=== PATIENT | female | born 1955 | race Caucasian/White ===

== ENCOUNTER 2023-06-01 09:38 | Outpatient (AMB) | payer MEDICARE, OTHER, SELFPAY ==
--- NOTE | 2023-06-01 09:45 | HO.NEPHOV ---
HPI HPI Comments History of Present Illness Details I had the privilege of seeing Fernanda in consultation for proteinuria. 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 She has had nephrolithiasis in the past. She has history hypertension and has LVH by echocardiogram last year. She has been taking Remicade. She also had been on spironolactone, fenofibrate, metformin as well as prednisone among her other medications. Her serum creatinine has been around 1.2. She has been having mild proteinuria. She denies any epistaxis, hemoptysis, hematemesis, melena, new skin rash, photosensitivity or pedal edema. She does not have any bone pain and does not take excessive nonsteroidal anti-inflammatory medications. [facility] Medical History (Updated 06/15/23 @ 04:20 by Danny Shelley MD) LVH (left ventricular hypertrophy) B12 deficiency Type 2 diabetes mellitus History of bone density study Hypothyroidism Hypertension Kidney stone JEAN (obstructive sleep apnea) Pulmonary fibrosis Behcet's disease Diverticulitis Proteinuria Surgical History (Updated 06/01/23 @ 09:51 by Rox Gresham MA) History of left hip replacement History of left knee replacement History of right hip replacement S/P skin biopsy History of knee surgery H/O: section History of total knee replacement (TKR) Family History (Updated 06/01/23 @ 08:46 by Rox Gresham MA) Father Heart attack Heart disease Mother Parkinson disease Social History (Updated 06/01/23 @ 08:51 by Rox Gresham MA) Alcohol intake: current Comment: occasionally Patient Tobacco Use Status: Former Tobacco user Vital Signs 06/01/23 09:47 Height 5 ft 3 in Weight 181 lb BMI 32.1 BP 120/82 Blood Pressure Location Rt brachial Position Sitting Pulse 54 Pulse Source Pulse Oximeter Physical Exam Vital Signs: Last Vital Signs Pulse 54 06/01/23 09:47 BP 120/82 06/01/23 09:47 BMI result Body Mass Index 32.1 Const General: comfortable and no acute distress Orientation/consciousness: patient oriented x3 HEENT Head: Yes normocephalic Mouth: Normal oral and palatal mucosa present Eyes EOM: EOMs intact bilaterally Neck Neck: Yes supple Resp Auscultation: clear to auscultation bilaterally Cardio Jugular venous distension: no JVD Rate: regular rate GI Palpation (GI): Soft to palpation Auscultation: normal bowel sounds General: Yes no CVA tenderness Back/Spine/Pelvis Back: no CVA tenderness Skin General skin exam: no rashes or lesions noted Neuro General: patient oriented x3 and moves all extremities Extrem General: Yes no pedal edema Assessment & Plan Assessment & Plan (1) CKD (chronic kidney disease) stage 3, GFR 30-59 ml/min: Code(s): N18.30 - Chronic kidney disease, stage 3 unspecified Qualifiers: Chronic kidney disease stage 3 subtype: stage 3a (GFR 45-59) Qualified Code(s): N18.31 - Chronic kidney disease, stage 3a (2) Kidney stone: Code(s): N20.0 - Calculus of kidney (3) Hypertension: Code(s): I10 - Essential (primary) hypertension Qualifiers: Hypertension type: primary hypertension Qualified Code(s): I10 - Essential (primary) hypertension Plan Fernanda has 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 She has been on multiple antihypertensive medications but is not on any XAVIER inhibitor or ARB. She is unsure whether she has taken Xavier inhibitor or ARB in the past. Her blood pressure is at goal. She is known to have a Bechets syndrome. She has taken Remicade . Her serum creatinine is currently stable. I ordered workup. I did not make any medication changes today. All questions were answered. Follow-up given Orders: Orders Electrolytes 06/01/23 N20.0 - Calculus of kidney, I10 - Essential (primary) hypertension, N18.30 - Chronic kidney disease, stage 3 unspecified Complement C4 06/01/23 N20.0 - Calculus of kidney, I10 - Essential (primary) hypertension, N18.30 - Chronic kidney disease, stage 3 unspecified Immunofixation Pnl, Serum 06/01/23 N20.0 - Calculus of kidney, I10 - Essential (primary) hypertension, N18.30 - Chronic kidney disease, stage 3 unspecified Creatinine 06/01/23 N20.0 - Calculus of kidney, I10 - Essential (primary) hypertension, N18.30 - Chronic kidney disease, stage 3 unspecified Blood Urea Nitrogen 06/01/23 N20.0 - Calculus of kidney, I10 - Essential (primary) hypertension, N18.30 - Chronic kidney disease, stage 3 unspecified Complete Blood Count Auto Diff 06/01/23 N20.0 - Calculus of kidney, I10 - Essential (primary) hypertension, N18.30 - Chronic kidney disease, stage 3 unspecified Protein Creatinine Ratio, Ur 06/01/23 N20.0 - Calculus of kidney, I10 - Essential (primary) hypertension, N18.30 - Chronic kidney disease, stage 3 unspecified Complement C3 06/01/23 N20.0 - Calculus of kidney, I10 - Essential (primary) hypertension, N18.30 - Chronic kidney disease, stage 3 unspecified US renal BI 06/01/23 N18.30 - Chronic kidney disease, stage 3 unspecified, N20.0 - Calculus of kidney, I10 - Essential (primary) hypertension Coding Level of Care Code New Pt Level 4 (79642) Diagnoses Stage 3a chronic kidney disease N18.31 Chronic kidney disease stage 3 subtype: stage 3a (GFR 45-59) Kidney stone N20.0 Primary hypertension I10 Hypertension type: primary hypertension Results Reviewed Nephrology Results: No Data to Display
[2023-06-01 09:47] VITALS: BP 120/82; PULSE 54; BMI 32.1
== END 2023-06-01 10:34 | disposition home or self-care (01) ==
PROVIDERS: PCP Internal Medicine; Visit Provider Internal Medicine Nephrology
DX: N18.31 Chronic kidney disease, stage 3a (principal); N20.0 Calculus of kidney; I10 Essential (primary) hypertension
CPT/HCPCS: 99204

== ENCOUNTER → 2023-06-01 09:38 | Outpatient (BNVA) | payer MEDICARE, OTHER, SELFPAY | PROVIDERS: PCP Internal Medicine; Visit Provider Internal Medicine Nephrology | DX: R80.9 Proteinuria, unspecified (principal); I12.9 Hypertensive chronic kidney disease with stage 1 through stage 4 chronic kidney disease, or unspecified chronic kidney disease; N18.31 Chronic kidney disease, stage 3a; N20.0 Calculus of kidney | CPT/HCPCS: 99202 ==

== ENCOUNTER 2023-09-21 09:50 | Outpatient (AMB) | payer MEDICARE, OTHER, SELFPAY ==
--- NOTE | 2023-09-21 10:02 | HO.NEPHOV ---
HPI HPI Comments History of Present Illness Details I had the privilege of seeing Fernanda in follow up for proteinuria. 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 She came off Remicade in June. She has had nephrolithiasis in the past. She has history hypertension and has LVH by echocardiogram last year. She has H/O taking Remicade. She also had been on spironolactone, fenofibrate, metformin as well as prednisone among her other medications. Her serum creatinine has been around 1.2. She has been H/O mild proteinuria. She denies any epistaxis, hemoptysis, hematemesis, melena, new skin rash, photosensitivity or pedal edema. She does not have any bone pain and does not take excessive nonsteroidal anti-inflammatory medications. She was having dizzy spells and atenolol was reduced to 25 mg daily. She is due to have MRI soon , ordered by PCP. [facility] Medical History (Updated 06/15/23 @ 04:20 by Danny Shelley MD) LVH (left ventricular hypertrophy) B12 deficiency Type 2 diabetes mellitus History of bone density study Hypothyroidism Hypertension Kidney stone JEAN (obstructive sleep apnea) Pulmonary fibrosis Behcet's disease Diverticulitis Proteinuria Surgical History (Updated 06/01/23 @ 09:51 by Rox Gresham MA) History of left hip replacement History of left knee replacement History of right hip replacement S/P skin biopsy History of knee surgery H/O: section History of total knee replacement (TKR) Family History (Updated 06/01/23 @ 08:46 by Rox Gresham MA) Father Heart attack Heart disease Mother Parkinson disease Social History (Updated 06/01/23 @ 08:51 by Rox Gresham MA) Alcohol intake: current Comment: occasionally Patient Tobacco Use Status: Former Tobacco user Vital Signs 09/21/23 10:03 Height 5 ft 3 in Weight 180 lb 6 oz BMI 31.9 BP 110/72 Blood Pressure Location Lt brachial Position Sitting Pulse 55 Pulse Source Pulse Oximeter Pulse Oximetry (%) 96 Oxygen Delivery Method Room Air Physical Exam Const General: comfortable and no acute distress Orientation/consciousness: patient oriented x3 HEENT Head: Yes normocephalic Mouth: Normal oral and palatal mucosa present Eyes EOM: EOMs intact bilaterally Neck Neck: Yes supple Resp Auscultation: clear to auscultation bilaterally Cardio Jugular venous distension: no JVD Rate: regular rate GI Palpation (GI): Soft to palpation Auscultation: normal bowel sounds General: Yes no CVA tenderness Back/Spine/Pelvis Back: no CVA tenderness Skin General skin exam: no rashes or lesions noted Neuro General: patient oriented x3 and moves all extremities Extrem General: Yes no pedal edema Assessment & Plan Assessment & Plan (1) Kidney stone: Code(s): N20.0 - Calculus of kidney (2) Hypertension: Code(s): I10 - Essential (primary) hypertension Qualifiers: Hypertension type: primary hypertension Qualified Code(s): I10 - Essential (primary) hypertension (3) CKD (chronic kidney disease) stage 3, GFR 30-59 ml/min: Code(s): N18.30 - Chronic kidney disease, stage 3 unspecified Qualifiers: Chronic kidney disease stage 3 subtype: stage 3a (GFR 45-59) Qualified Code(s): N18.31 - Chronic kidney disease, stage 3a Zak Michael has 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 She has been on multiple antihypertensive medications but is not on any GIGI inhibitor or ARB. Her blood pressure is at goal. She is known to have a Bechets syndrome. She had taken Remicade but is off now . Her serum creatinine is currently stable. There is no significant proteinuria. She still has B/L asymptomatic renal stones. I did not make any medication changes today. All questions were answered. Follow-up given Orders: Orders Blood Urea Nitrogen Today I10 - Essential (primary) hypertension, N18.30 - Chronic kidney disease, stage 3 unspecified, N20.0 - Calculus of kidney Electrolytes Today I10 - Essential (primary) hypertension, N18.30 - Chronic kidney disease, stage 3 unspecified, N20.0 - Calculus of kidney Creatinine Today I10 - Essential (primary) hypertension, N18.30 - Chronic kidney disease, stage 3 unspecified, N20.0 - Calculus of kidney Protein Creatinine Ratio, Ur Today I10 - Essential (primary) hypertension, N18.30 - Chronic kidney disease, stage 3 unspecified, N20.0 - Calculus of kidney UA and rflx microscopic Today I10 - Essential (primary) hypertension, N18.30 - Chronic kidney disease, stage 3 unspecified, N20.0 - Calculus of kidney Coding Level of Care Code Est Pt Level 4 (95690) Diagnoses Kidney stone N20.0 Primary hypertension I10 Hypertension type: primary hypertension Stage 3a chronic kidney disease N18.31 Chronic kidney disease stage 3 subtype: stage 3a (GFR 45-59) Results Reviewed Nephrology Results: No Data to Display
[2023-09-21 10:03] VITALS: BP 110/72; PULSE 55; O2SAT 96; BMI 31.9
== END 2023-09-21 10:26 | disposition home or self-care (01) ==
PROVIDERS: PCP Internal Medicine; Visit Provider Internal Medicine Nephrology
DX: N20.0 Calculus of kidney (principal); I10 Essential (primary) hypertension; N18.31 Chronic kidney disease, stage 3a
CPT/HCPCS: 99214

== ENCOUNTER → 2023-09-21 09:50 | Outpatient (BNVA) | payer MEDICARE, OTHER, SELFPAY | PROVIDERS: PCP Internal Medicine; Visit Provider Internal Medicine Nephrology | DX: R80.9 Proteinuria, unspecified (principal); N20.0 Calculus of kidney; I12.9 Hypertensive chronic kidney disease with stage 1 through stage 4 chronic kidney disease, or unspecified chronic kidney disease; N18.31 Chronic kidney disease, stage 3a | CPT/HCPCS: 99212 ==

== ENCOUNTER 2024-03-28 09:48 | Outpatient (AMB) | payer MEDICARE, OTHER, SELFPAY ==
[2024-03-28 09:56] VITALS: BP 110/80; PULSE 55; O2SAT 96; BMI 32.1
--- NOTE | 2024-03-28 09:56 | HO.NEPHOV ---
Vital Signs 03/28/24 09:56 Height 5 ft 3 in Weight 181 lb 4 oz BMI 32.1 BP 110/80 Blood Pressure Location Lt brachial Position Sitting Pulse 55 Pulse Source Pulse Oximeter Pulse Oximetry (%) 96 Oxygen Delivery Method Room Air Intake Visit Reasons: 6 mon follow up- Conf [employer] Required: No Accompanied by: Self / Same As Patient Allergies ciprofloxacin [From Cipro] Allergy (Verified 03/28/24 09:58) Unknown levofloxacin Allergy (Verified 03/28/24 09:58) Anaphylaxis Avalox Allergy (Uncoded 06/01/23 08:54) Unknown HPI Comments Details: I had the privilege of seeing Fernanda in follow up for proteinuria. 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 She came off Remicade in June 2023. She has had nephrolithiasis in the past. She has history hypertension and has LVH by echocardiogram last year. She has H/O taking Remicade. She also had been on spironolactone, fenofibrate, metformin as well as prednisone among her other medications. Her serum creatinine has been around 1.2. She has been H/O mild proteinuria. She denies any epistaxis, hemoptysis, hematemesis, melena, new skin rash, photosensitivity or pedal edema. She does not have any bone pain and does not take excessive nonsteroidal anti-inflammatory medications. [facility] Medical History (Updated 06/15/23 @ 04:20 by Danny Shelley MD) LVH (left ventricular hypertrophy) B12 deficiency Type 2 diabetes mellitus History of bone density study Hypothyroidism Hypertension Kidney stone JEAN (obstructive sleep apnea) Pulmonary fibrosis Behcet's disease Diverticulitis Proteinuria Surgical History History of left hip replacement History of left knee replacement History of right hip replacement S/P skin biopsy History of knee surgery H/O: section History of total knee replacement (TKR) Family History Father Heart attack Heart disease Mother Parkinson disease Social History Alcohol intake: current Comment: occasionally Patient Tobacco Use Status: Former Tobacco user Review of Systems Const All systems reviewed & are unremarkable except as noted in HPI and below Physical Exam Vital Signs: Last Vital Signs Pulse 55 03/28/24 09:56 BP 110/80 03/28/24 09:56 Pulse Ox 96 03/28/24 09:56 Oxygen Delivery Method Room Air 03/28/24 09:56 BMI result Body Mass Index 32.1 Const General: comfortable and no acute distress Orientation/consciousness: patient oriented x3 HEENT Head: Yes normocephalic Mouth: Normal oral and palatal mucosa present Eyes EOM: EOMs intact bilaterally Neck Neck: Yes supple Resp Auscultation: clear to auscultation bilaterally Cardio Jugular venous distension: no JVD Rate: regular rate GI Palpation (GI): Soft to palpation Auscultation: normal bowel sounds General: Yes no CVA tenderness Back/Spine/Pelvis Back: no CVA tenderness Skin General skin exam: no rashes or lesions noted Neuro General: patient oriented x3 and moves all extremities Results Reviewed Nephrology Results: No Data to Display Assessment & Plan Assessment & Plan (1) Kidney stone: Code(s): N20.0 - Calculus of kidney Category: Medical (2) Hypertension: Code(s): I10 - Essential (primary) hypertension Category: Medical Qualifiers: Hypertension type: primary hypertension Qualified Code(s): I10 - Essential (primary) hypertension (3) CKD (chronic kidney disease) stage 3, GFR 30-59 ml/min: Code(s): N18.30 - Chronic kidney disease, stage 3 unspecified Category: Medical Qualifiers: Chronic kidney disease stage 3 subtype: stage 3a (GFR 45-59) Qualified Code(s): N18.31 - Chronic kidney disease, stage 3a Zak Michael has 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 Her blood pressure is at goal. She is known to have a Bechets syndrome. She had taken Remicade but is off now . Her serum creatinine is currently stable. There is no significant proteinuria. She still has B/L asymptomatic renal stones. I did not make any medication changes today. All questions were answered. Follow-up given Orders: Orders Creatinine 6 Months I10 - Essential (primary) hypertension, N18.31 - Chronic kidney disease, stage 3a, N20.0 - Calculus of kidney Electrolytes 6 Months I10 - Essential (primary) hypertension, N18.31 - Chronic kidney disease, stage 3a, N20.0 - Calculus of kidney Blood Urea Nitrogen 6 Months I10 - Essential (primary) hypertension, N18.31 - Chronic kidney disease, stage 3a, N20.0 - Calculus of kidney Protein Creatinine Ratio, Ur 6 Months I10 - Essential (primary) hypertension, N18.31 - Chronic kidney disease, stage 3a, N20.0 - Calculus of kidney Coding Level of Care Code Est Pt Level 4 (93755) Diagnoses Kidney stone N20.0 Primary hypertension I10 Hypertension type: primary hypertension Stage 3a chronic kidney disease N18.31 Chronic kidney disease stage 3 subtype: stage 3a (GFR 45-59)
== END 2024-03-28 10:24 | disposition home or self-care (01) ==
PROVIDERS: PCP Internal Medicine; Visit Provider Internal Medicine Nephrology
DX: N20.0 Calculus of kidney (principal); I10 Essential (primary) hypertension; N18.31 Chronic kidney disease, stage 3a
CPT/HCPCS: 99214

== ENCOUNTER → 2024-03-28 09:48 | Outpatient (BNVA) | payer MEDICARE, OTHER, SELFPAY | PROVIDERS: PCP Internal Medicine; Visit Provider Internal Medicine Nephrology | DX: N20.0 Calculus of kidney (principal); I12.9 Hypertensive chronic kidney disease with stage 1 through stage 4 chronic kidney disease, or unspecified chronic kidney disease; N18.31 Chronic kidney disease, stage 3a; Z79.899 Other long term (current) drug therapy | CPT/HCPCS: 99212 ==

== ENCOUNTER 2024-11-14 11:50 | Outpatient (AMB) | payer MEDICARE, OTHER, SELFPAY ==
--- NOTE | 2024-11-14 11:56 | HO.NEPHOV_ITS ---
Vital Signs 11/14/24 11:57 Height 5 ft 3 in Weight 177 lb BMI 31.4 BP 112/78 Blood Pressure Location Lt brachial Position Sitting Pulse 59 Pulse Source Pulse Oximeter Pulse Oximetry (%) 96 Oxygen Delivery Method Room Air Intake Visit Reasons: 7 mo follow up-[facility] [place] [employer] Required: No Accompanied by: Self / Same As Patient Allergies ciprofloxacin [From Cipro] Allergy (Verified 11/14/24 11:59) Unknown levofloxacin Allergy (Verified 11/14/24 11:59) Anaphylaxis Avalox Allergy (Uncoded 06/01/23 08:54) Unknown HPI Comments Details: I had the privilege of seeing Fernanda in follow up for proteinuria. 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 She came off Remicade in June 2023. She has had nephrolithiasis in the past. She has history hypertension and has LVH by echocardiogram last year. She has H/O taking Remicade. She also had been on spironolactone, fenofibrate, metformin as well as prednisone among her other medications. Her serum creatinine has been around 1.2. She has been H/O mild proteinuria. She denies any epistaxis, h emoptysis, hematemesis, melena, new skin rash, photosensitivity or pedal edema. She does not have any bone pain and does not take excessive nonsteroidal anti- inflammatory medications. [facility] Medical History (Updated 06/15/23 @ 04:20 by Danny Shelley MD) LVH (left ventricular hypertrophy) B12 deficiency Type 2 diabetes mellitus History of bone density study Hypothyroidism Hypertension Kidney stone JEAN (obstructive sleep apnea) Pulmonary fibrosis Behcet's disease Diverticulitis Proteinuria Surgical History History of left hip replacement History of left knee replacement History of right hip replacement S/P skin biopsy History of knee surgery H/O: section History of total knee replacement (TKR) Family History Father Heart attack Heart disease Mother Parkinson disease Social History Alcohol intake: current Comment: occasionally Patient Tobacco Use Status: Former Tobacco user Review of Systems Const All systems reviewed & are unremarkable except as noted in HPI and below Physical Exam Vital Signs: Last Vital Signs Pulse 59 11/14/24 11:57 BP 112/78 11/14/24 11:57 Pulse Ox 96 11/14/24 11:57 Oxygen Delivery Method Room Air 11/14/24 11:57 BMI result Body Mass Index 31.4 Const General: comfortable and no acute distress Orientation/consciousness: patient oriented x3 HEENT Head: Yes normocephalic Mouth: Normal oral and palatal mucosa present Eyes EOM: EOMs intact bilaterally Neck Neck: Yes supple Resp Auscultation: clear to auscultation bilaterally Cardio Jugular venous distension: no JVD Rate: regular rate GI Palpation (GI): Soft to palpation Auscultation: normal bowel sounds General: Yes no CVA tenderness Back/Spine/Pelvis Back: no CVA tenderness Skin General skin exam: no rashes or lesions noted Neuro General: patient oriented x3 and moves all extremities Extrem General: Yes no pedal edema Results Reviewed Nephrology Results: No Data to Display Assessment & Plan Assessment & Plan (1) CKD (chronic kidney disease) stage 3, GFR 30-59 ml/min: Code(s): N18.30 - Chronic kidney disease, stage 3 unspecified Category: Medical Qualifiers: Chronic kidney disease stage 3 subtype: stage 3a (GFR 45-59) Qualified Code(s): N18.31 - Chronic kidney disease, stage 3a (2) Hypertension: Code(s): I10 - Essential (primary) hypertension Category: Medical Qualifiers: Hypertension type: primary hypertension Qualified Code(s): I10 - Essential (primary) hypertension (3) Kidney stone: Code(s): N20.0 - Calculus of kidney Category: Medical Plan Fernanda has 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 Her blood pressure is at goal. She is known to have a Bechets syndrome. She had taken Remicade but is off now . Her serum creatinine is currently stable. There is no significant proteinuria. She still has B/L asymptomatic renal stones. I did not make any medication changes today. All questions were answered. Follow-up given Orders: Orders Creatinine 1 Year I10 - Essential (primary) hypertension, N18.31 - Chronic kidney disease, stage 3a, N20.0 - Calculus of kidney Protein Creatinine Ratio, Ur 1 Year I10 - Essential (primary) hypertension, N18.31 - Chronic kidney disease, stage 3a, N20.0 - Calculus of kidney Electrolytes 1 Year I10 - Essential (primary) hypertension, N18.31 - Chronic kidney disease, stage 3a, N20.0 - Calculus of kidney Blood Urea Nitrogen 1 Year I10 - Essential (primary) hypertension, N18.31 - Chronic kidney disease, stage 3a, N20.0 - Calculus of kidney Coding Level of Care Code Est Pt Level 4 (02065) Diagnoses Stage 3a chronic kidney disease N18.31 Chronic kidney disease stage 3 subtype: stage 3a (GFR 45-59) Primary hypertension I10 Hypertension type: primary hypertension Kidney stone N20.0
[2024-11-14 11:57] VITALS: BP 112/78; PULSE 59; O2SAT 96; BMI 31.4
--- OUTSIDE RECORDS SUMMARY | 2024-11-14 13:02 | XMS_ITS | Clinical Summary ---
Author Organization [facility] Address [address] [place] [address] Phone Care Team Providers Care Rubber Compounder Supervisor Name Role Phone Jeffrey De La Garza MD Primary Care Provider + [phone] Allergies Active Allergy Reactions Criticality Noted Date Comments Moxifloxacin Hives 05/23/2024 Ciprofloxacin Hives,Swelling 12/04/2016 Severity: Moderate; Ingredients: ciprofloxacin; Type: Drug; Other Reaction(s): red/hot/itch; throat close Levofloxacin Hives 05/23/2024 Nickel Itching,Rash Low 12/04/2016 Ingredients: nickel; Type: Drug; Nsaids (Non-Steroidal Anti-Inflammatory Drug) GI intolerance 12/24/2016 Type: Drug; Other Reaction(s): CKD Medications spironolactone (ALDACTONE) 25 mg tablet Take 1 tablet (25 mg total) by mouth daily. 3 Active atenoloL (TENORMIN) 50 mg tablet Take 0.5 tablets (25 mg total) by mouth daily. 3 Active amLODIPine (NORVASC) 5 mg tablet Take 1 tablet (5 mg total) by mouth daily. 3 Active levothyroxine (SYNTHROID, LEVOTHROID) 75 mcg tablet Take 1 tablet (75 mcg total) by mouth 1 (one) time each day. for 90 days Active PARoxetine (PAXIL) 40 mg tablet Take 1 tablet (40 mg total) by mouth 1 (one) time each day. 0 Active omeprazole (PriLOSEC) [address] capsule Take 1 capsule (20 mg total) by mouth daily. 3 Active fenofibrate (TRICOR) 145 mg tablet Take 1 tablet (145 mg total) by mouth 1 (one) time each day. Active metFORMIN (GLUCOPHAGE) 500 mg tablet Take 1 tablet (500 mg total) by mouth 2 (two) times a day with meals. Active rosuvastatin (CRESTOR) 10 mg tablet Take 1 tablet (10 mg total) by mouth 1 (one) time each day. for 30 days Active methylPREDNISol one (MEDROL) 4 mg tablet Take 1 tablet (4 mg total) by mouth 1 (one) time each day. Active dorzolamide-mandi oloL (COSOPT) 22.3-6.8 mg/mL ophthalmic solution Administer 1 drop into affected eye(s) 2 times daily. 4 Active calcium carbonate 1,500 mg (600 mg elemental calcium) tablet Take 1 tablet (1,500 mg total) by mouth 2 times daily. 0 Active magnesium oxide 500 mg capsule Take 500 mg by mouth 1 (one) time each day. Active cyanocobalamin (VITAMIN B-12) 1,000 mcg tablet Take 1 tablet (1,000 mcg total) by mouth 1 (one) time each day. Active acetaminophen (TYLENOL) 500 mg tablet Take 2 tablets (1,000 mg total) by mouth every 8 hours as needed. Active alendronate (FOSAMAX) 70 mg tablet Take 1 tablet (70 mg total) by mouth every 7 (seven) days. 4 Active fluticasone propionate (FLONASE) 50 mcg/actuation nasal spray Administer 2 sprays into each nostril 1 (one) time each day. 4 Active latanoprost (XALATAN) 0.005 % ophthalmic solution Administer 1 drop into both eyes at bedtime. Active cholecalciferol (VITAMIN D-3) 50 mcg (2,000 unit) tablet Take 1 tablet (2,000 Units total) by mouth 1 (one) time each day. Active Surgical History Surgery Date Site/Laterality Comments SECTION, LOW TRANSVERSE TOTAL HIP ARTHROPLASTY Bilateral TOTAL KNEE ARTHROPLASTY Left Medical History Medical History Date Comments Hypertension Hyperlipidemia JEAN on CPAP GERD (gastroesophageal reflux disease) Diverticulosis Colon polyp Behcet disease with multisystem involvement (CMS /HCC V24, CMS/HCC V28) Diabetes mellitus ([facility] V24, [facility] V28) Social History Tobacco Use Types Packs/Day Years Used Date Smoking Tobacco: Former Smokeless Tobacco: Never Alcohol Use Standard Drinks/Week Comments Yes 0 (1 standard drink = 0.6 oz pur e alcohol) OCCASIONAL Interpersonal Safety Answer Date Record ed Physical Abuse 05/31/2024 Verbal Abuse 05/31/2024 Comments Unknown Sex and Gender Information Value Date Recorded Sex Assigned at Not on file Legal Sex Female 12:58 PM EST Gender Identity Not on file Sexual Orientation Not on file Obstetrics History Last Filed Vital Signs Vital Sign Reading Time Taken Comments Blood Pressure 122/75 05/31/2024 9:11 AM EST Pulse 53 05/31/2024 9:11 AM EST Temperature 35.7 ??C (96.3 ??F) 05/31/2024 8:02 AM ES T Respiratory Rate 14 05/31/2024 9:11 AM EST Oxygen Saturation 100% 05/31/2024 9:11 AM EST Inhaled Oxygen Concentration - - Weight 80.3 kg (177 lb) 05/31/2024 8:02 AM EST Height 160 cm (5' 3 ) 05/31/2024 8:02 AM EST Body Mass Index 31.35 05/31/2024 8:02 AM EST Plan of Treatment Upcoming Encounters Date Type Department Care Team (Late st Contact Info) Description 11/28/2024 10:45 AM EDT [facility] [address] [place] [id number] [place] [address] [place] [id number] Health Maintenance Due Date Last Done Comments Breast Cancer Screening 1955 Diabetes: Annual Foot Exam 1964 Diabetes: Annual Retina Eye Exam 1964 Pneumococcal Vaccine: 50+ Years (1 of 1 - PCV) 2004 Zoster Vaccines (1 of 2) 2004 Cholesterol Screening (Lipid Panel) 05/26/2022 Depression Screening 05/26/2022 Hepatitis C Screening 05/26/2022 Medicare Annual Wellness Visit 05/26/2022 Osteoporosis Screening (Bone Density Screening) 05/26/2022 Social Influencers of Health Screening 05/26/2022 Diabetes: Annual Urine Albumin-Creatinine Ratio (uACR) 05/03/2024 Diabetes: Blood Sugar Control Test (HGBA1C) 05/03/2024 03/24/2023 COVID-19 Vaccine ( season) 2024 03/14/2024, 04/06/2022, 08/29/2021, Additional history exists Diabetes: Annual GFR (Glomerular Filtration Rate) 02/14/2025 02/15/2024, 08/17/2023, 05/19/2023 Hypertension/CHF/CAD Annual BMP Blood Test 02/14/2025 02/15/2024, 08/17/2023, 05/19/2023 Falls Risk Assessment 05/31/2025 05/31/2024 RSV Immunization Adult Patients (1 - 1-dose 75+ series) 2029 DTaP,Tdap,and Td Vaccines (2 - Td or Tdap) 05/01/2034 05/01/2024 Colorectal Cancer Screening: Colonoscopy 05/31/2034 05/31/2024 Influenza Vaccine Completed 03/14/2024, , 05/06/2021, Additional history exists HIB Vaccines Aged Out No longer eligi ble based on patient's age to complete this topic HPV Vaccines Aged Out No longer eligi ble based on patient's age to complete this topic Hepatitis A Vaccines Aged Out No long er eligible based on patient's age to complete this topic Hepatitis B Vaccines Aged Out No long er eligible based on patient's age to complete this topic IPV Vaccines Aged Out No longer eligi ble based on patient's age to complete this topic MMR Vaccines Aged Out No longer eligi ble based on patient's age to complete this topic Meningococcal ACWY Vaccine Aged Out N o longer eligible based on patient's age to complete this topic Meningococcal B Vaccine Aged Out No l onger eligible based on patient's age to complete this topic RSV Immunization Patients Under 20 months Aged Out No longer eligible based on patient's age to complete this topic Varicella Vaccines Aged Out No longer eligible based on patient's age to complete this topic Procedures Procedure Name Priority Date/Time Associated Diagnosis Comments COLONOSCOPY Routine 05/31/2024 8:50 AM EST Personal history of colon polyps, unspecified from Last 3 Months or Most Recently Relevant to Health Maintenance Results * COLONOSCOPY Sedation; [facility] ENDOSCOPY (05/31/2024 8:50 AM EST) Anatomical Region Laterality Modality Endoscopy 05/31/2024 8:17 AM EST Impressions 05/31/2024 8:51 AM EST - One 7 mm polyp in the distal transverse colon, ? removed with a cold snare. Resected and retrieved. ? - Four 2 to 3 mm polyps in the transverse colon, ? removed with a Induction Managero cold forceps. Resected and ? retrieved. ? - Diverticulosis in the left colon. ? - The examination was otherwise normal on direct and ? retroflexion views. Recommendation: ?- Patient has a contact number available for ? emergencies. The signs and symptoms of potential ? delayed complications were discussed with the patient. ? Return to normal activities tomorrow. Written ? discharge instructions were provided to the patient. ? - Resume previous diet. ? - Continue present medications. ? - Await pathology results. ? - Repeat colonoscopy in 3 years for surveillance. Narrative 05/31/2024 8:51 AM EST [facility] GI Patient Name: Fernanda Whitt Procedure Date: 05/31/2024 8:17 AM Date of : 1955 Age: 68 Gender: Female Note Status: Finalized Attending MD: Amador Rodriguez MD, Procedure Date No Time: 05/31/2024 Procedure: ? Colonoscopy Indications: ? High risk colon cancer surveillance: Personal history ? of colonic polyps Providers: ? Amador Rodriguez MD Referring MD: ?Amador Rodriguez MD Medicines: ? Monitored Anesthesia Care Complications: ? No immediate complications. Estimated Blood Loss: ? Estimated blood loss: none. Procedure: ? After I obtained informed consent, the scope was ? passed under direct vision. Throughout the procedure, ? the patient's blood pressure, pulse, and oxygen ? saturations were monitored continuously. The ? Colonoscope was introduced through the anus and ? advanced to the cecum, identified by appendiceal ? orifice and ileocecal valve. The colonoscopy was ? performed without difficulty. The patient tolerated ? the procedure well. The quality of the bowel ? preparation was good. Findings: ?A 7 mm polyp was found in the distal transverse colon. ? The polyp was sessile. The polyp was removed with a ? cold snare. Resection and retrieval were complete. ? Four sessile polyps were found in the transverse ? colon. The polyps were 2 to 3 mm in size. These polyps ? were removed with a jumbo cold forceps. Resection and ? retrieval were complete. ? A few medium-mouthed diverticula were found in the ? left colon. ? The exam was otherwise without abnormality on direct ? and retroflexion views. Procedure Code(s): ? --- Professional --- ? 23601, Colonoscopy, flexible; with removal of ? tumor(s), polyp(s), or other lesion(s) by snare ? technique ? 81355, 59, Colonoscopy, flexible; with biopsy, single ? or multiple Diagnosis Code(s): ? --- Professional --- ? D12.3, Benign neoplasm of transverse colon (hepatic ? flexure or splenic flexure) ? Z86.010, Personal history of colonic polyps ? K57.30, Diverticulosis of large intestine without ? perforation or abscess without bleeding CPT copyright 202 [employer]. All rights reserved. The codes documented in this report are preliminary and upon vocational psychologist review may be revised to meet current compliance requirements. MD Amador Hudson MD 05/31/2024 8:51:06 AM This report has been signed electronically.Amador Rodriguez MD Number of Addenda: 0 Note Initiated On: 05/31/2024 8:17 AM Scope In: Scope Out: ? Endoscopy Department at [facility] - [address] [place] [address], ? [place] [address] Procedure Note Amador Rodriguez MD - 05/31/2024 [facility] GI Patient Name: Fernanda Whitt Procedure Date: 05/31/2024 8:17 AM Date of : 1955 Age: 68 Gender: Female Note Status: Finalized Attending MD: Amador Rodriguez MD, Procedure Date No Time: 05/31/2024 Procedure: Colonoscopy Indications: High risk colon cancer surveillance: Personalhistory of colonic polyps Providers: Amador Rodriguez MD Referring MD: Amador Rodriguez MD Medicines: Monitored Anesthesia Care Complications: No immediate complications. Estimated Blood Loss: Estimated blood loss: none. Procedure: After I obtained informed consent, the scope was passed under direct vision. Throughout theprocedure, the patient's blood pressure, pulse, and oxygen saturations were monitored continuously. The Colonoscope was introduced through the anus and advanced to the cecum, identified by appendiceal orifice and ileocecal valve. The colonoscopy was performed without difficulty. The patient tolerated the procedure well. The quality of the bowel preparation was good. Findings: A 7 mm polyp was found in the distal transversecolon. The polyp was sessile. The polyp was removed with a cold snare. Resection and retrieval werecomplete. Four sessile polyps were found in the transverse colon. The polyps were 2 to 3 mm in size. Thesepolyps were removed with a jumbo cold forceps. Resectionand retrieval were complete. A few medium-mouthed diverticula were found in the left colon. The exam was otherwise without abnormality ondirect and retroflexion views. Procedure Code(s): --- Professional --- 61838, Colonoscopy, flexible; with removal of tumor(s), polyp(s), or other lesion(s) by snare technique 92948, 59, Colonoscopy, flexible; with biopsy,single or multiple Diagnosis Code(s): --- Professional --- D12.3, Benign neoplasm of transverse colon (hepatic flexure or splenic flexure) Z86.010, Personal history of colonic polyps K57.30, Diverticulosis of large intestine without perforation or abscess without bleeding CPT copyright 2020 [employer]. All rights reserved. The codes documented in this report are preliminary and upon vocational psychologist reviewmay be revised to meet current compliance requirements. MD Amador Hudson MD 05/31/2024 8:51:06 AM This report has been signed electronically.Amador Rodriguez MD Number of Addenda: 0 Note Initiated On: 05/31/2024 8:17 AM Scope In: Scope Out: Endoscopy Department at [facility] - [address] [place] [id number] IMPRESSION: - One 7 mm polyp in the distal transverse colon, removed with a cold snare. Resected andretrieved. - Four 2 to 3 mm polyps in the transverse colon, removed with a jumbo cold forceps. Resected and retrieved. - Diverticulosis in the left colon. - The examination was otherwise normal on directand retroflexion views. Recommendation: - Patient has a contact number available for emergencies. The signs and symptoms of potential delayed complications were discussed with thepatient. Return to normal activities tomorrow. Written discharge instructions were provided to thepatient. - Resume previous diet. - Continue present medications. - Await pathology results. - Repeat colonoscopy in 3 years for surveillance. Amador Rodriguez MD GI~PROCEDURE ORDERABLES Final R esult from Last 3 Months or Most Recently Relevant to Health Maintenance Insurance MEDICARE [facility] Care Teams Rubber Compounder Supervisor Relationship Specialty Start Date End Date Jeffrey D eLa Garza MD [address] [place] [address] PCP - General Internal Medicine 05/02/24
--- OUTSIDE RECORDS SUMMARY | 2024-11-14 13:02 | XMS_ITS | Clinical Summary ---
Author Organization [facility] Address [address] [place] [id number] Care Team Providers Care Freelance Graphic Designer Name Role Phone Jeffrey De La Garza MD Primary Care Provider Medications spironolactone (ALDACTONE) 25 MG tablet TAKE 1 TABLET BY MOUTH ONCE A DAY 90 tablet 4 05/19/2022 Active Family History Medical History Relation Comments Heart disease Father Heart Attack Hypertension Father Hypertension Mother Hypertension Sibling sister Relation Status Comments Father Unknown Mother Unknown Sibling Social History Tobacco Use Types Packs/Day Years Used Date Smoking Tobacco: Former Alcohol Use Standard Drinks/Week Comments Yes 0 (1 standard drink = 0.6 oz pure alcohol) Alcoholic Drinks/day: Occasional social drink Comments Unknown Sex and Gender Information Value Date Recorded Sex Assigned at Not on file Legal Sex Female 4:47 PM EST Gender Identity Not on file Sexual Orientation Not on file Plan of Treatment Health Maintenance Due Date Last Done Comments Breast Cancer Screening 1955 Pneumococcal Vaccine: 50+ Ye ars (1 of 2 - PCV) 1973 Colorectal Cancer Screening: Annual FOBT 10/24/2003 Colorectal Cancer Screening: Colonoscopy 10/24/2003 Colorectal Cancer Screening: Sigmoidoscopy 10/24/2003 Diabetes: Hemoglobin A1C 07/28/2020 Diabetes: Ophthalmology Exam 07/28/2020 Diabetes: Pedal Pulse Checked 07/28/2020 Diabetes: Sensory Foot Exam 07/28/2020 Diabetes: Visual Foot Exam 07/28/2020 Influenza Vaccine (Season Ended) 2025 Hepatitis B Vaccine Aged Out No longe r eligible based on patient's age to complete this topic Care Teams Freelance Graphic Designer Relationship Specialty Start Date End Date Jeffrey De La Garza MD [address] [place] [address] PCP - General 07/08/20
--- OUTSIDE RECORDS SUMMARY | 2024-11-14 13:02 | XMS_ITS | Clinical Summary ---
Author Organization [facility] Address [address] [place] [address] Care Team Providers Care Prop Setter Name Role Phone Jeffrey De La Garza MD Primary Care Provider [phone] Allergies Active Allergy Reactions Criticality Noted Date Comments Lidocaine-Menthol 09/04/2019 Ciprofloxacin 09/04/2019 Medications Medication Sig Dispensed Refills Start Date End Date Status spironolactone (ALDACTONE) tablet 25 mg Take 1 tablet (25 mg total) by mouth daily. 0 Active atenolol (TENORMIN) tablet 50 mg Take 1 tablet (50 mg total) by mouth daily. 0 Active amLODIPine (NORVASC) tablet 10 mg Take 0.5 tablets (5 mg total) by mouth daily. 0 Active levothyroxine (SYNTHROID, LEVOXYL) tablet 100 mcg Take 88 mcg by mouth every morning on an empty stomach. 0 Active PARoxetine mesylate (PEXEVA) 40 MG tablet Take 1 tablet (40 mg total) by mouth every morning. 0 Active fenofibrate (TRICOR,LOFIBRA) tablet 54 mg Take 145 mg by mouth daily. 0 Active Calcium Carbonate (CALCIUM 600) 1500 (600 Ca) MG TABS Take 1 tablet by mouth 2 (two) times a day. 0 Active omeprazole (PriLOSEC) 20 MG capsule Take 1 capsule (20 mg total) by mouth daily. 0 Active Vitamin D, Ergocalciferol, 50 MCG (2000 UT) CAPS Take 2,000 Units by mouth daily. 0 Active Magnesium 500 MG CAPS Take by mouth. 0 Active lidocaine (XYLOCAINE) 5 % ointment Apply topically as needed. 0 Active latanoprost (XALATAN) 0.005 % ophthalmic solution Place 1 drop into both eyes every night at bedtime. 0 Active timolol (TIMOPTIC) 0.25 % ophthalmic solution Place 1 drop into the left eye 2 (two) times a day. 0 Active inFLIXimab (REMICADE) 100 MG injection Inject 5 mg/kg into the vein once. 0 Active metFORMIN (GLUCOPHAGE) tablet 500 mg Take 1 tablet (500 mg total) by mouth 2 (two) times a day with meals. 0 Active Active Problems Problem Noted Date Diagnosed Date Stage 3 chronic kidney disease 09/06/2019 Acquired hypothyroidism 09/06/2019 Gastroesophageal reflux disease 09/06/2019 Reactive depression 09/06/2019 Essential hypertension 09/06/2019 Monoclonal gammopathies 09/04/2019 Behcet's disease 09/04/2019 Social History Tobacco Use Types Packs/Day Years Used Date Smoking Tobacco: Former Smokeless Tobacco: Never Alcohol Use Standard Drinks/Week Comments Yes 0 (1 standard drink = 0.6 oz pur e alcohol) 3 Drinks a week Sex and Gender Information Value Date Recorded Sex Assigned at Not on file Gender Identity Not on file Sexual Orientation Not on file Job Start Date Occupation Industry Not on file Not on file Not on file Last Filed Vital Signs Vital Sign Reading Time Taken Comments Blood Pressure 144/83 06/15/2023 11:16 AM EST Pulse 56 06/15/2023 11:16 AM EST Temperature 36.2 ??C (97.2 ??F) 12/17/2021 9:48 AM ED T Respiratory Rate - - Oxygen Saturation 100% 06/15/2023 11:16 AM EST Inhaled Oxygen Concentration - - Weight 82.1 kg (181 lb) 06/15/2023 11:16 AM EST Height 162.6 cm (5' 4 ) 12/17/2021 9:48 AM EDT Body Mass Index 31.07 12/17/2021 9:48 AM EDT Plan of Treatment Health Maintenance Due Date Last Done Comments Hepatitis C Screening 1955 COVID-19 Vaccine (#1) 04/24/1955 Depression Screening 1966 Preventative Health Evaluation 1972 DTap / Tdap / Td (1 - Tdap) 1973 Colon Cancer Screening (Colonoscopy) 10/24/1999 Breast Cancer Screening (Mammogram) 2004 Shingrix-Zoster Vaccine (1 of 2) 2004 Fall Risk Assessment 10/24/2019 Osteoporosis Screening (DEXA Scan) 10/24/2019 Pneumococcal Vaccine (1 of 1 - PCV) 10/24/2019 Influenza Vaccine (#1) 2024 RSV Adult > 60+ Yrs or Pregn ant (1 - 1-dose 75+ series) 2029 Hepatitis B Vaccines Aged Out No long er eligible based on patient's age to complete this topic RSV Ped < 20 months Aged Out No longe r eligible based on patient's age to complete this topic Care Teams Prop Setter Relationship Specialty Start Date End Date Jeffrey De La Garza MD [address] [facility] [address] [place] [address] PCP - General Internal Medicine 08/08/19
== END 2024-11-14 12:13 | disposition home or self-care (01) ==
LOC: HO.HKAS 11:51
PROVIDERS: PCP Internal Medicine; Visit Provider Internal Medicine Nephrology
DX: N18.31 Chronic kidney disease, stage 3a (principal); I10 Essential (primary) hypertension; N20.0 Calculus of kidney
CPT/HCPCS: 99214

== ENCOUNTER → 2024-11-14 11:50 | Outpatient (BNVA) | payer MEDICARE, OTHER, SELFPAY | PROVIDERS: PCP Internal Medicine; Visit Provider Internal Medicine Nephrology | DX: I12.9 Hypertensive chronic kidney disease with stage 1 through stage 4 chronic kidney disease, or unspecified chronic kidney disease (principal); N18.31 Chronic kidney disease, stage 3a; N20.0 Calculus of kidney | CPT/HCPCS: 99212 ==